=== PATIENT | male | born 1960 | race Caucasian/White ===

== ENCOUNTER 2022-01-29 09:03 | Emergency (ER) | payer OTHER ==
--- NOTE | 2022-01-29 09:05 | ERPHSYRPT ---
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 Early this morning, the pain suddenly became worse and he is having difficulty sitting up and standing. He did not fall. He has no history of any kidney or genitourinary complaints. He feels it is muscle skeletal. Family of service brought him into the hospital. Patient received Zofran and fentanyl dose which did help his pain mildly. Timing/Duration: yesterday Method of Injury: other (No specific injury. No fall) Back Pain Location: paraspinous muscles Back Pain Radiation: buttocks (Right lower lumbar region into his right buttock) Severity of Pain-Max: moderate Severity of Pain-Current: moderate Modifying Factors: Improves With: movement, other (Standing and walking) Associated Symptoms: lower back pain, No urinary incontinence, No loss of bowel control, No problems urinating, No numbness in legs/feet, No tingling in legs/feet Previous symptoms: no prior history Allergies/Adverse Reactions: No Known Drug Allergies Allergy (Unverified 01/29/22 09:11) Home Medications: Atorvastatin Calcium [Lipitor 40Mg] 40 mg PO QPM 01/29/22 [History] Cholecalciferol (Vitamin D3) [Vitamin D] 50,000 unit PO DAILY 01/29/22 [History] Loratadine 10 mg [Claritin 10 mg] 10 mg PO DAILY 01/29/22 [History] Losartan Potassium [Cozaar] 100 mg PO DAILY 01/29/22 [History] Metformin HCl [Metformin HCl ER] 750 mg PO DAILY 01/29/22 [History] Spironolactone 25 mg [Aldactone 25 MG] 25 mg PO DAILY 01/29/22 [History] hydroCHLOROthiazide [Hydrochlorothiazide] 25 mg PO DAILY 01/29/22 [History] Travel Risk - International Travel Have you traveled outside of the country in past 3 weeks: No - Coronavirus Screening Are you exhibiting any of the following symptoms?: No Close contact with a COVID-19 positive Pt in past 14-21 Days: No - Review of Systems Constitutional: No Symptoms Eyes: No Symptoms Ears, Nose, & Throat: No Symptoms Respiratory: No Symptoms Cardiac: No Symptoms Abdominal/Gastrointestinal: No Symptoms Genitourinary Symptoms: No Symptoms Musculoskeletal: Back Pain (Lower right lumbar region into the right buttock) Skin: No Symptoms Neurological: No Symptoms Psychological: No Symptoms Endocrine: No Symptoms Hematologic/Lymphatic: No Symptoms Immunological/Allergic: No Symptoms All Other Systems: Reviewed and Negative - Past Medical History Pertinent Past Medical History: Yes - Past Surgical History Past Surgical History: Yes - Nursing Vital Signs Nursing Vital Signs: Initial Vital Signs Temperature 96.5 F 01/29/22 09:05 Pulse Rate 70 01/29/22 09:05 Respiratory Rate 20 01/29/22 09:05 Blood Pressure 123/68 01/29/22 09:05 O2 Sat by Pulse Oximetry 97 01/29/22 09:05 Pain Scale Pain Intensity [Right] 8 Pain Intensity 8 - Physical Exam General Appearance: no apparent distress, alert, anxiety Eye Exam: PERRL/EOMI, eyes nml inspection Ears, Nose, Throat Exam: normal ENT inspection, moist mucous membranes Neck Exam: normal inspection, non-tender, supple, full range of motion Respiratory Exam: normal breath sounds, lungs clear, airway intact, No chest tenderness, No respiratory distress Cardiovascular Exam: regular rate/rhythm, normal heart sounds, normal peripheral pulses Gastrointestinal Exam: soft, normal bowel sounds, No tenderness Rectal Exam: not done Back Exam: decreased range of motion, muscle spasm, No CVA tenderness, No vertebral tenderness Extremity Exam: normal inspection, pelvis stable Neurologic Exam: alert, oriented x 3, cooperative, imager II-XII nml as tested, normal mood/affect, sensation nml, other (Since the patient was having pain with standing and ambulating I could not test cerebellar function and Station and gait at this time.) Skin Exam: normal color, warm, dry Lymphatic Exam: No adenopathy SpO2 Interpretation: normal O2 Delivery: Room Air - Course Nursing assessment & vital signs reviewed: Yes Ordered Tests: Medication Summary Discontinued Medications Generic Name Dose Route Start Last Admin Trade Name Freq PRN Reason Stop Dose Admin Methylprednisolone Sodium 0 mg 01/29/22 09:46 01/29/22 09:58 Succinate 125 mg/ Sterile IV 01/29/22 09:47 125 mg Water 2 ml STAT ONE Administration Hydromorphone HCl 1 mg 01/29/22 09:45 01/29/22 10:00 Hydromorphone 1 Mg/1ml Inj 1 Mg/Ml Syringe IV 01/29/22 09:46 1 mg STAT ONE Administration Hydromorphone HCl Confirm 01/29/22 09:56 Hydromorphone 1 Mg/1ml Inj 1 Mg/Ml Syringe Administered 01/29/22 09:57 Dose 1 mg .ROUTE .STK-MED ONE Methylprednisolone Sodium Succinate Confirm 01/29/22 09:56 Methylprednis Sod Succ 125 Mg/2 Ml Vial Administered 01/29/22 09:57 Dose 125 mg .ROUTE .STK-MED ONE Orphenadrine Citrate 60 mg 01/29/22 09:46 01/29/22 09:59 Orphenadrine Citrate 60 Mg/2 Ml Vial IV 01/29/22 09:47 60 mg STAT ONE Administration Orphenadrine Citrate Confirm 01/29/22 09:55 Orphenadrine Citrate 60 Mg/2 Ml Vial Administered 01/29/22 09:56 Dose 60 mg .ROUTE .STK-MED ONE - Departure Departure Disposition: Home Clinical Impression: Sciatica Condition: Stable Critical Care Time: No Referrals: BUSTER TESFAYE NP [Primary Care Provider] - Follow up/PCP as directed Additional Instructions: Take your medication as prescribed. Follow-up with your primary care provider for further evaluation and management. Prescriptions: Prednisone 10 mg [Deltasone 10 mg] 10 mg PO TID #12 tablet Orphenadrine Citrate 100 mg [Norflex 100 MG Tablet] 100 mg PO BID #10 tab
[2022-01-29] MEDS ORDERED: Hydromorphone 1 mg/ml Injection IV ONE (09:45)
[2022-01-29] MEDS ORDERED: solu-MEDROL 125 MG, Sterile H2O 10 ml 2 ML IV ONE ×2 (09:46)
[2022-01-29] MEDS ORDERED: Norflex 60 MG/2 ML IV ONE (09:46)
[2022-01-29] MEDS ORDERED: Norflex 60 MG/2 ML ONE (09:55)
[2022-01-29] MEDS ORDERED: Hydromorphone 1 mg/ml Injection ONE (09:56)
[2022-01-29] MEDS ORDERED: solu-MEDROL ONE (09:56)
[2022-01-29 10:21] VITALS: BP 122/73; PULSE 90; O2SAT 98
[2022-01-29] MEDS ORDERED: Zofran 4 MG/2 ML VIAL ONE (11:35)
[2022-01-29 11:47] LABS: Hyaline Casts 0-2 /LPF (0-2); Mucus SLIGHT /HPF (NEGATIVE)
[2022-01-29 11:51] LABS: Appearance CLEAR (CLEAR); Bilirubin NEGATIVE (NEGATIVE); Dipstick done @ ? MAIN LAB; Glucose >=1000 mg/dL (NEGATIVE); Ketones MODERATE-40 (NEGATIVE); Nitrite NEGATIVE (NEGATIVE); Protein,Urine Dip NEGATIVE (Negative); RBC NEGATIVE Ery/ul (0-5); Specific Gravity >=1.030 (1.005-1.025); Urobilinogen 0.2 mg/dL (0-1)
[2022-01-29 11:52] LABS: Urine Cultured Indicated? NO
== END 2022-01-29 12:18 | disposition home or self-care (01) ==
LOC: ED 09:03
DX: M54.31 Sciatica, right side (principal); I10 Essential (primary) hypertension; E11.9 Type 2 diabetes mellitus without complications; Z79.84 Long term (current) use of oral hypoglycemic drugs; Z79.899 Other long term (current) drug therapy; Z79.52 Long term (current) use of systemic steroids
CPT/HCPCS: 81015; 96374; 96375; 99283; J1170; J2360; J2405; J2930